=== PATIENT | male | born 1980 | race Hispanic/Latino ===

== ENCOUNTER 2023-04-09 13:43 | Inpatient (IN) | payer BC ==
[~2023-04-09] VITALS: Ht 165.1 cm; Wt 64.7 kg
[2023-04-09 14:09] LABS: BASOPHILS # (AUTO) 0.04 K/uL (0.00-0.20); BASOPHILS % (AUTO) 0.4 % (0.0-5.0); EOSINOPHILS # (AUTO) 0.02 K/uL (0.00-0.70); EOSINOPHILS % (AUTO) 0.2 % (0.0-8.0); HEMATOCRIT 45.6 % (42-54); IMMATURE GRANULOCYTE ABSOLUTE 0.05 K/uL (0-1); LYMPHOCYTES # (AUTO) 2.8 K/uL (1.0-4.8); LYMPHOCYTES % (AUTO) 27.1 % (21.0-51.0); MEAN CORPUSCULAR HEMOGLOBIN 30.6 pg (27.0-33.0); MEAN CORPUSCULAR HGB CONC 35.3 g/dL (32.0-36.0); MEAN CORPUSCULAR VOLUME 86.5 fL (79-99); MONOCYTES # (AUTO) 1.5 K/uL (0.1-1.0); MONOCYTES % (AUTO) 14.9 % (3.0-13.0); NEUTROPHILS # (AUTO) 5.8 K/uL (1.8-7.7); NEUTROPHILS % (AUTO) 56.9 % (40.0-77.0); PLATELET COUNT (AUTO) 272 K/uL (130-400); RED BLOOD CELL COUNT(AUTO) 5.27 MIL/uL (4.50-6.20); WHITE BLOOD COUNT (AUTO) 10.1 K/uL (4.8-10.8)
[2023-04-09 14:16] LABS: SARS-CoV-2, RNA, NAAT NEGATIVE SARS CoV-2 (NEGATIVE)
[2023-04-09 14:18] LABS: RAPID GROUP A STREP negative (NEGATIVE)
[2023-04-09 14:22] LABS: INFLUENZA TYPE B Negative For Type B (NEGATIVE)
[2023-04-09 14:24] LABS: CREATININE 2.1 mg/dL (0.5-1.5); POTASSIUM 3.8 mmol/L (3.5-5.1)
[2023-04-09 14:29] LABS: INFLUENZA TYPE A Positive For Type A (NEGATIVE)
[2023-04-09 14:29] LABS: ALBUMIN 3.7 g/dL (3.5-5.0); BILIRUBIN,TOTAL 0.9 mg/dL (0.2-1.0)
[2023-04-09] MEDS: 0.9%NACL 1000ML 1,000 ML IV SCH ×2 (15:10→16:50)
[2023-04-09] MEDS: 0.9%NACL 1000ML 1,000 ML IV ONE (15:24)
[2023-04-09] MEDS: OSELTAMIVIR PHOSPHATE 75 MG CAP PO ONE (15:25)
[2023-04-09 15:28] LABS: ABG OXYGEN SATURATION 16.9 % (95.0-99.0); HCO3,VENOUS BLOOD GAS 18.2 (21.0-28.0); PCO2,VENOUS BLOOD GAS 27 (32-45); PH,VENOUS BLOOD GAS 7.452 (7.350-7.450); PO2,VENOUS BLOOD GAS 12.8 mmHg (35.0-45.0); VENT MODE, BG RA (ROOM AIR)
[2023-04-09] MEDS ORDERED: DIPHENHYDRAMINE HCL 25 MG CAPSULE PO PRN (16:00)
[2023-04-09] MEDS ORDERED: ACETAMINOPHEN 325 MG TAB PO PRN (16:00)
[2023-04-09] MEDS ORDERED: LACTULOSE 20 GM/30 ML UDCUP PO PRN (16:00)
[2023-04-09] MEDS ORDERED: ACETAMINOPHEN WITH CODEINE 1 TAB TAB PO PRN (16:00)
[2023-04-09] MEDS ORDERED: HYDRALAZINE 20MG/ML VIAL IV PRN (16:00)
[2023-04-09] MEDS ORDERED: MAG/ALUM/SIMETH 30 ML UDCUP PO PRN (16:00)
[2023-04-09] MEDS ORDERED: NITROGLYCERIN 0.4 MG SL TAB SL PRN (16:00)
[2023-04-09] MEDS ORDERED: IPRATROPIUM/ALBUTEROL SULFATE 3 ML SOLUTION IH PRN (16:30)
[2023-04-09] MEDS: ONDANSETRON 4MG INJ IV PRN (17:17)
[2023-04-09 17:19] VITALS: PULSE 96; RESP 20; O2SAT 100
[2023-04-09 17:30] LABS: APPEARANCE,URINE CLEAR (CLEAR); BILIRUBIN,URINE NEGATIVE (NEGATIVE); COLOR,URINE YELLOW (YELLOW); GLUCOSE, URINE (UA) NEGATIVE (NEGATIVE); KETONES,URINE 100 mg/dL (NEGATIVE); LEUKOCYTE ESTERASE ,URINE NEGATIVE Leu/uL (NEGATIVE); NITRATE,URINE NEGATIVE (NEGATIVE); OCCULT BLOOD,URINE LARGE (NEGATIVE); PH,URINE 5.5 (5.0-8.0); PROTEIN,URINE 30 mg/dL (NEGATIVE); UROBILINOGEN,URINE 0.2 mg/dL (0.2-1.0)
[2023-04-09 17:32] LABS: ADD UA MICROSCOPIC YES
[2023-04-09 17:36] LABS: BACTERIA,URINE RARE /HPF (None Seen); SQUAMOUS EPITHELIAL CELL,UR RARE /HPF (0-2); WBC,URINE 0-1 /HPF (0-1)
[2023-04-09 17:37] LABS: CHLORIDE,URINE RANDOM 54 mmol/L (110-250); POTASSIUM,URINE RANDOM 34 mmol/L (25-125); SODIUM,URINE RANDOM 68 mmol/l (40-220)
[2023-04-09] MEDS: HYDROCORTISONE SOD SUCCINATE 100 MG/2 ML VIAL IV ONE (19:28)
[2023-04-09 19:30] VITALS: PULSE 89; RESP 18; O2SAT 98
[2023-04-09] MEDS: HEPARIN 5,000 UNIT VIAL SQ SCH (21:46)
[2023-04-09] MEDS: OSELTAMIVIR PHOSPHATE 75 MG CAP PO SCH (21:46)
[2023-04-10 07:52] LABS: PHOSPHORUS 6.7 mg/dL (2.5-4.9); URIC ACID 11.4 mg/dL (2.6-7.2)
[2023-04-10 07:53] LABS: THYROID STIMULATING HORMONE < 0.01 uIU/mL (0.36-3.74)
[2023-04-10] MEDS: FAMOTIDINE 20MG VIAL IV SCH (08:36)
[2023-04-10] MEDS ORDERED: OSELTAMIVIR PHOSPHATE 75 MG CAP PO SCH (09:00)
[2023-04-10 09:01] VITALS: PULSE 91; RESP 18; O2SAT 99
[2023-04-10 13:09] LABS: BASOPHILS # (AUTO) 0.01 K/uL (0.00-0.20); BASOPHILS % (AUTO) 0.2 % (0.0-5.0); HEMATOCRIT 43.8 % (42-54); IMMATURE GRANULOCYTE ABSOLUTE 0.01 K/uL (0-1); LYMPHOCYTES # (AUTO) 0.7 K/uL (1.0-4.8); LYMPHOCYTES % (AUTO) 14.5 % (21.0-51.0); MEAN CORPUSCULAR HEMOGLOBIN 30.4 pg (27.0-33.0); MEAN CORPUSCULAR HGB CONC 34.9 g/dL (32.0-36.0); MEAN CORPUSCULAR VOLUME 86.9 fL (79-99); MONOCYTES # (AUTO) 0.3 K/uL (0.1-1.0); MONOCYTES % (AUTO) 5.1 % (3.0-13.0); NEUTROPHILS # (AUTO) 3.9 K/uL (1.8-7.7); PLATELET COUNT (AUTO) 299 K/uL (130-400); RED BLOOD CELL COUNT(AUTO) 5.04 MIL/uL (4.50-6.20); RED CELL DISTRIBUTION WIDTH 12.6 % (11.0-15.5); WHITE BLOOD COUNT (AUTO) 4.9 K/uL (4.8-10.8)
[2023-04-10 13:26] LABS: ALBUMIN 3.5 g/dL (3.5-5.0); BILIRUBIN,TOTAL 0.5 mg/dL (0.2-1.0); CREATININE 1.6 mg/dL (0.5-1.5); POTASSIUM 4.8 mmol/L (3.5-5.1); TOTAL PROTEIN, SERUM 7.9 g/dL (6.0-8.3)
[2023-04-10 18:58] VITALS: PULSE 93; RESP 18; O2SAT 98
[2023-04-10 22:00] VITALS: BP 124/79; PULSE 83; RESP 20
[2023-04-11] VITALS (9 sets, daily range): BP systolic 113–132; BP diastolic 72–92; PULSE 65–79; RESP 18–20; O2SAT 95–97
[2023-04-11 05:14] LABS: BASOPHILS # (AUTO) 0.03 K/uL (0.00-0.20); BASOPHILS % (AUTO) 0.5 % (0.0-5.0); EOSINOPHILS # (AUTO) 0.09 K/uL (0.00-0.70); EOSINOPHILS % (AUTO) 1.5 % (0.0-8.0); IMMATURE GRANULOCYTE ABSOLUTE 0.01 K/uL (0-1); LYMPHOCYTES # (AUTO) 2.2 K/uL (1.0-4.8); LYMPHOCYTES % (AUTO) 36.8 % (21.0-51.0); MEAN CORPUSCULAR HEMOGLOBIN 30.2 pg (27.0-33.0); MEAN CORPUSCULAR HGB CONC 34.9 g/dL (32.0-36.0); MEAN CORPUSCULAR VOLUME 86.7 fL (79-99); MONOCYTES # (AUTO) 0.6 K/uL (0.1-1.0); MONOCYTES % (AUTO) 10.4 % (3.0-13.0); NEUTROPHILS % (AUTO) 50.6 % (40.0-77.0); PLATELET COUNT (AUTO) 245 K/uL (130-400); RED BLOOD CELL COUNT(AUTO) 4.27 MIL/uL (4.50-6.20); RED CELL DISTRIBUTION WIDTH 12.5 % (11.0-15.5); WHITE BLOOD COUNT (AUTO) 5.9 K/uL (4.8-10.8)
[2023-04-11 05:27] LABS: ALBUMIN 2.9 g/dL (3.5-5.0); BILIRUBIN,TOTAL 0.5 mg/dL (0.2-1.0); CREATININE 1.3 mg/dL (0.5-1.5); POTASSIUM 3.6 mmol/L (3.5-5.1); TOTAL PROTEIN, SERUM 6.5 g/dL (6.0-8.3)
[2023-04-11] MEDS: GUAIFENESIN-DM 200/20 MG 10 ML PO PRN (21:17)
[2023-04-12] VITALS (7 sets, daily range): BP systolic 118–130; BP diastolic 75–84; PULSE 62–82; RESP 18; O2SAT 93–98
[2023-04-12 04:56] LABS: BASOPHILS # (AUTO) 0.05 K/uL (0.00-0.20); BASOPHILS % (AUTO) 0.9 % (0.0-5.0); EOSINOPHILS # (AUTO) 0.36 K/uL (0.00-0.70); EOSINOPHILS % (AUTO) 6.3 % (0.0-8.0); HEMATOCRIT 36.2 % (42-54); IMMATURE GRANULOCYTE ABSOLUTE 0.01 K/uL (0-1); LYMPHOCYTES # (AUTO) 2.6 K/uL (1.0-4.8); LYMPHOCYTES % (AUTO) 44.5 % (21.0-51.0); MEAN CORPUSCULAR HEMOGLOBIN 30.6 pg (27.0-33.0); MEAN CORPUSCULAR HGB CONC 34.5 g/dL (32.0-36.0); MEAN CORPUSCULAR VOLUME 88.5 fL (79-99); MONOCYTES # (AUTO) 0.5 K/uL (0.1-1.0); MONOCYTES % (AUTO) 9.2 % (3.0-13.0); NEUTROPHILS # (AUTO) 2.2 K/uL (1.8-7.7); NEUTROPHILS % (AUTO) 38.9 % (40.0-77.0); PLATELET COUNT (AUTO) 218 K/uL (130-400); RED BLOOD CELL COUNT(AUTO) 4.09 MIL/uL (4.50-6.20); RED CELL DISTRIBUTION WIDTH 12.3 % (11.0-15.5); WHITE BLOOD COUNT (AUTO) 5.7 K/uL (4.8-10.8)
[2023-04-12 05:22] LABS: ALBUMIN 2.9 g/dL (3.5-5.0); BILIRUBIN,TOTAL 0.6 mg/dL (0.2-1.0); CREATININE 1.2 mg/dL (0.5-1.5); POTASSIUM 4.2 mmol/L (3.5-5.1); TOTAL PROTEIN, SERUM 6.2 g/dL (6.0-8.3)
== END 2023-04-12 21:30 | disposition home or self-care (01) | DRG 640 ==
LOC: EDH 13:43 → EDHIP 15:34 → 3AH 04-10 21:18
PROVIDERS: ADMIT Internal Medicine; ATTEND Internal Medicine
DX: E86.0 Dehydration (principal); N17.0 Acute kidney failure with tubular necrosis; M62.82 Rhabdomyolysis; N17.9 Acute kidney failure, unspecified; E87.1 Hypo-osmolality and hyponatremia; E87.20 Acidosis, unspecified; Z20.822 Contact with and (suspected) exposure to COVID-19; J10.1 Influenza due to other identified influenza virus with other respiratory manifestations; N18.9 Chronic kidney disease, unspecified; E11.9 Type 2 diabetes mellitus without complications; Z52.4 Kidney donor
CPT/HCPCS: 36415; 36600; 71045; 76770; 80051; 80053; 81001; 82010; 82550; 82803; 83605; 83690; 83735; 84100; 84443; 84550; 85025; 87040; 87635; 87804; 87880; G0378; J1644; J1720; J2405; J3490

== ENCOUNTER 2023-11-13 15:38 | Emergency (ER) | payer BC ==
[~2023-11-13] VITALS: Ht 170.2 cm; Wt 72.6 kg
[2023-11-13] MEDS: CYCLOBENZAPRINE HCL 10 MG TABLET PO ONE (16:07)
[2023-11-13] MEDS: acetaMINOPHEN WITH coDEINE 1 TAB TAB PO ONE (16:07)
[2023-11-13] MEDS: dexaMETHasone SOD PHOSPHATE 4 MG/ML 1ML VIAL IM ONE (16:07)
[2023-11-13] MEDS ORDERED: ACET-2079 PO (17:03)
[2023-11-13] MEDS ORDERED: METH4TAB3 PO (17:03)
[2023-11-13] MEDS ORDERED: CYCL-309 PO (17:03)
[2023-11-13 17:24] VITALS: BP 130/80; PULSE 70; RESP 16; TEMP 98.3; O2SAT 98
== END 2023-11-13 17:30 | disposition home or self-care (01) ==
LOC: EDH 15:38
DX: M54.41 Lumbago with sciatica, right side (principal); E03.9 Hypothyroidism, unspecified; E78.00 Pure hypercholesterolemia, unspecified; Z90.5 Acquired absence of kidney
CPT/HCPCS: 99284; 72100; 96372; J1100